=== PATIENT | male | born 1955 | race Caucasian/White ===

== ENCOUNTER 2019-04-19 13:52 | Emergency (ER) | payer SELFPAY ==
[~2019-04-19] VITALS: Ht 170.2 cm; Wt 72.6 kg
[2019-04-19 14:07] VITALS: BP 169/93
--- NOTE | 2019-04-19 14:13 | NUR ---
SEEN AND EXAMINED BY
--- NOTE | 2019-04-19 15:22 | NUR ---
SPLINT AND SHOULDER SLING APPLIED BY MATERIAL DISPATCHER.
== END 2019-04-19 15:24 | disposition home or self-care (01) ==
LOC: ER 13:52
DX: S52.591A Other fractures of lower end of right radius, initial encounter for closed fracture (principal); S60.221A Contusion of right hand, initial encounter; W18.39XA Other fall on same level, initial encounter; Y93.89 Activity, other specified; Y92.89 Other specified places as the place of occurrence of the external cause; Y99.8 Other external cause status
CPT/HCPCS: 73110

== ENCOUNTER 2019-05-13 15:08 | Emergency (ER) | payer SELFPAY ==
[~2019-05-13] VITALS: Ht 170.2 cm; Wt 72.6 kg
--- NOTE | 2019-05-13 15:13 | NUR ---
Came in for recheck was here 04/19 after fall brace/sling/slint R arm now swelling, to er 10, hooked to monitor, changed to [facility], provided w warm blanket, HELADIO Michaels at bedside
[2019-05-13] MEDS ORDERED: IBUPROFEN 600 MG TABLET PO ONE ×2 (15:30→16:11)
--- NOTE | 2019-05-13 16:00 | NUR ---
applied R arm sling and volar splint by tech
--- NOTE | 2019-05-13 16:25 | NUR ---
Patient discharged to home in stable condition. Written and verbal after care instructions given. Patient verbalizes understanding of instruction.
[2019-05-13 16:26] VITALS: BP 142/99
== END 2019-05-13 16:27 | disposition home or self-care (01) ==
LOC: ER 15:08
DX: S52.591A Other fractures of lower end of right radius, initial encounter for closed fracture (principal); S52.611A Displaced fracture of right ulna styloid process, initial encounter for closed fracture; W18.39XA Other fall on same level, initial encounter; Y93.89 Activity, other specified; Y92.89 Other specified places as the place of occurrence of the external cause; Y99.8 Other external cause status
CPT/HCPCS: 73110

== ENCOUNTER 2019-05-23 15:11 | Emergency (ER) | payer MEDICAID ==
[~2019-05-23] VITALS: Ht 170.2 cm; Wt 70.3 kg
[2019-05-23 16:19] VITALS: BP 162/98
== END 2019-05-23 16:22 | disposition home or self-care (01) ==
LOC: ER 15:14
DX: S69.81XA Other specified injuries of right wrist, hand and finger(s), initial encounter (principal); W18.39XA Other fall on same level, initial encounter; Y93.89 Activity, other specified; Y92.89 Other specified places as the place of occurrence of the external cause; Y99.8 Other external cause status

== ENCOUNTER → 2021-04-19 | Emergency (ER) | payer MEDICAID, MEDICARE ==
[~2021-04-19] VITALS: Ht 170.2 cm; Wt 74.8 kg
[~2021-04-19] MED LIST: BACI30OI9 TP; HYDR-4303 PO
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
--- NOTE | 2021-04-19 15:23 | NUR ---
PT TAKEN TO CT
--- NOTE | 2021-04-19 15:38 | NUR ---
PT BACK FROM CT
--- NOTE | 2021-04-19 16:30 | NUR ---
PA AT BEDSIDE
[2021-04-19 16:33] VITALS: BP 135/92
--- NOTE | 2021-04-19 16:33 | NUR ---
Patient discharged to home in stable condition. RX Written and verbal after care instructions given. Patient verbalizes understanding of instruction. PT ambulatory with a steady gait
== END | disposition home or self-care (01) ==
LOC: ER 16:05
DX: S42.291A Other displaced fracture of upper end of right humerus, initial encounter for closed fracture (principal); S00.81XA Abrasion of other part of head, initial encounter; W18.39XA Other fall on same level, initial encounter; Y93.89 Activity, other specified; Y92.89 Other specified places as the place of occurrence of the external cause; Y99.8 Other external cause status
CPT/HCPCS: 70450-TC; 72125-TC; 73060-TC